=== PATIENT | female | born 1995 | race Caucasian/White ===

== ENCOUNTER 2017-09-06 09:49 | Emergency (ER) | payer OTHER ==
[2017-09-06 10:21] VITALS: BP 119/74
[2017-09-06] MEDS ORDERED: Albuterol 2.5 MG/3 ML NEB.SOL* (0.083%) INH ONE (10:43)
--- NOTE | 2017-09-06 10:44 | UC ---
UC General HPI - HPI Summary HPI Summary: pt is c/o a cough for 2 weeks. she was seen in ER and tx for bronchitis with augmentin. the cough is now congested. no fever or wheezing. hx childhood asthma. also, c/o nasal congestion for 5 days. - History of Current Complaint Chief Complaint: UCRespiratory Stated Complaint: COUGH/CONGESTION Time Seen by Provider: 09/06/17 10:37 Hx Obtained From: Patient Hx Last Menstrual Period: 2 days Onset/Duration: Gradual Onset Pain Intensity: 0 Alleviating: nothing Associated Signs & Symptoms: Positive: Cough, SOB. Negative: Chest Pain, Fever , Wheezing - Allergy/Home Medications Allergies/Adverse Reactions: Allergies Allergy/AdvReac Type Severity Reaction Status Date / Time coconut Allergy Swelling Verified 09/06/17 10:22 Of Face,Lips,& Throat environmental Allergy Sneezing Uncoded 09/06/17 10:22 Home Medications: Home Medications FLUoxetine CAP* [PROzac CAP*] 10 mg PO BEDTIME 09/06/17 [History Confirmed 09/06] FLUoxetine CAP* [PROzac CAP*] 20 mg PO DAILY 09/06/17 [History Confirmed ] Loratadine 10 mg PO QPM 09/06/17 [History Confirmed 09/06/17] PMH/Surg Hx/FS Hx/Imm Hx - Additional Past Medical History Additional PMH: allergies Respiratory History: Asthma Psychological History: Depression - Surgical History Surgical History: Yes Surgery Procedure, Year, and Place: 4 teeth extractions; ear tubes - Social History Alcohol Use: None Substance Use Type: None Smoking Status (MU): Never Smoked Tobacco - Immunization History Vaccination Up to Date: Yes Review of Systems Constitutional: Negative Skin: Negative Eyes: Negative ENT: Sinus Congestion Respiratory: Shortness Of Breath, Cough Cardiovascular: Negative Gastrointestinal: Negative Genitourinary: Negative Motor: Negative Neurovascular: Negative Musculoskeletal: Negative Neurological: Negative Psychological: Negative Is Patient Immunocompromised?: No All Other Systems Reviewed And Are Negative: Yes Physical Exam Triage Information Reviewed: Yes Appearance: Well-Appearing Vital Signs: Initial Vital Signs Temp 98 F 09/06/17 10:05 Pulse 100 09/06/17 10:05 Resp 18 09/06/17 10:05 BP 119/74 09/06/17 10:05 Pulse Ox 99 09/06/17 10:05 Eyes: Positive: Conjunctiva Clear ENT: Positive: Pharynx normal, TMs normal. Negative: Nasal drainage, Sinus tenderness Neck: Positive: Supple, Nontender, No Lymphadenopathy Respiratory: Positive: Lungs clear, No respiratory distress, Decreased breath sounds Cardiovascular: Positive: RRR, No Murmur Abdomen Description: Positive: Nontender, No Organomegaly, Soft Bowel Sounds: Positive: Present Musculoskeletal: Positive: ROM Intact Neurological: Positive: Alert Psychological: Positive: Age Appropriate Behavior Skin Exam: Normal Re-Evaluation - Re-Evaluation Second Eval Change: Improved - less cough and much improved aeration Course/Dx - Differential Dx - Multi-Symptom Provider Diagnoses: URI, asthma flare Discharge - Sign-Out/Discharge Documenting (check all that apply): Discharge - Discharge Plan Condition: Improved Disposition: HOME Prescriptions: Albuterol 2.5MG/3ML (0.083%)* [Ventolin 2.5 MG/3 ML NEB.TITO*] 2.5 mg INH Q6H PRN #1 box PRN Reason: Sob/Wheezing Albuterol HFA INHALER* [Ventolin HFA Inhaler*] 2 puff INH Q6H #1 mdi predniSONE TAB* [Deltasone TAB*] 40 mg PO DAILY 3 Days #6 tab Patient Education Materials: Asthma (ED), Upper Respiratory Infection (DC) Forms: *Work Release Referrals: Ladan Greene MD [Primary Care Provider] - 7 Days - Billing Disposition and Condition Condition: IMPROVED Disposition: HOME
== END 2017-09-06 11:22 | disposition home or self-care (01) ==
LOC: UCCORT 09:49
DX: J06.9 Acute upper respiratory infection, unspecified (principal); J45.909 Unspecified asthma, uncomplicated
CPT/HCPCS: 99212; G0463

== ENCOUNTER 2018-03-29 17:00 | Emergency (ER) | payer OTHER ==
--- OUTSIDE RECORDS SUMMARY | 2018-03-29 17:10 | XMS REPORT | Continuity of Care Document ---
:1995 External Reference #:[id number] Author Name Aleksandra Atkins NP Address [address] [place] [address] Care Team Providers Name Role Phone Family [facility] Primary Care Physician Unavailable Payers Type Date Identification Numbers Payment Provider Subscriber Effective: 2015 Policy Number: [id number] [facility] Joy Salazar PayID: [id number] [address] [place] [address] Policy Number: [id number] [place] Joy Salazar PayID: [id number] [address] [place] [address] Advance Directives Description No Information Available Problems Date Description Provider Status Onset: 06/07/2016 Benign hypertension Emmy Suazo NP Active Family History Date Family Member(s) Problem(s) Comments General Lung Disease PGF Father Unknown Mother Alive no contact Social History Type Date Description Comments Sex Female 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 [employer] Marital Status Legal Status: Never Tobacco Use Reviewed: 03/18/18 Never Smoked Cigars Tobacco Use Reviewed: 03/18/18 Never Smoked A Pipe Smoking Status Reviewed: 03/18/18 Never Smoked A Pipe Tobacco Use Reviewed: 03/18/18 Never Used Smokeless Tobacco ETOH Use Rarely consumes alcohol Recreational Drug Use Denies Drug Use Tobacco Use Reviewed: 03/18/18 Patient has never smoked Recreational Drug Use Teaching provided regarding Naloxone/Narcan Training Available At [facility] [employer]too[employer] 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 Last [place] 3 months ago Contraceptive Methods Past methods include depo-provera injection Contraceptive Methods Current methods used include Nexplanon Age 1st [place] 17 Years Old STD's No STD History UNKNOWN 03/18/2018 Never E-Cigarette user Allergies, Adverse Reactions, Alerts Date Description Reaction Status Severity Comments 11/14/2014 NKDA Active 11/14/2014 Environmental Active 10/16/2016 Coconut Active Medications Medication Date Status Form Strength Qnty SIG Indications Ordering Provider Depo-Provera 03/18 Active Suspension 150mg/ml 1ml intramuscular Z30.013 In every 12 weeks MD Sammy til next annual Naprosyn 10/16 Active Tablets 500mg 28tab 1 tab every 12 N92.6 In s hours take MD Sammy with food Naproxen Active Unknown / Loratadine Active Unknown Flagyl 05/28 Hx Tablets 500mg 4tabs four tabs by A59.01 In mouth x 1 dose MD Sammy - 03/18 Fluconazole 05/28 Hx Tablets 150mg 2tabs one tab today A59.01 In and september repeat MD Sammy - in 10 days if 03/18 symptomatic Ortho-Cyclen 05/28 Hx Tablets 0.25-35mg 56tab take one tab Z30.46 In -mcg s daily by mouth MD Sammy - at the same 03/18 Ortho-Cyclen 11/06 Hx Tablets 0.25-35mg 84tab take one tab Z30.46 In [facility] -mcg s daily by mouth MD Sammy - at the same 12/16 /2016 Hx Unknown Complete / - 11/06 Iron (Ferrous Hx Unknown Gluconate) / - 11/06 Medications Administered in Office Medication Date Status Form Strength Qnty SIG Indications Ordering Provider Nexplanon 03/11 Administered Implant 68mg Intraderm Z30.018 In catrachito Christianson MD J-Depo Provera 03/18 Administered Injection Aleksandra Injection GLADYS Atkins Contraceptive 05/28 Administered Injection Aleksandra Pills Cale Atkins NP Contraceptive 11/06 Administered Injection Aleksandra Pills Cale Atkins NP Nexplanon 03/11 Administered Injection Aleksandra Device GLADYS Atkins J-Depo Provera 02/08 Administered Injection Beverly Injection /2013 [place] Immunizations Description No Information Available Vital Signs Date Vital Result Comment 03/18/2018 11:25am BP Systolic 120 mmHg BP Diastolic 74 mmHg Height 60.5 inches 5'0.50" Weight 213.00 lb BMI (Body Mass Index) 40.9 kg/m2 05/28/2017 11:38am BP Systolic 118 mmHg BP Diastolic 80 mmHg Height 60.5 inches 5'0.50" Weight 206.00 lb BMI (Body Mass Index) 39.6 kg/m2 12/16/2016 1:58pm BP Systolic 120 mmHg BP Diastolic 78 mmHg Height 60.5 inches 5'0.50" Weight 193.00 lb BMI (Body Mass Index) 37.1 kg/m2 11/06/2016 9:52am BP Systolic 110 mmHg large manual cuff BP Diastolic 80 mmHg large manual cuff Weight 199.00 lb 10/16/2016 1:13pm BP Systolic 148 mmHg BP Diastolic 88 mmHg Weight 198.00 lb 06/07/2016 4:19pm BP Systolic 162 mmHg recheck 15 min rest BP Diastolic 90 mmHg recheck 15 min rest 06/07/2016 2:18pm BP Systolic 122 mmHg digital 32-42 cuff, left arm BP Diastolic 109 mmHg digital 32-42 cuff, left arm BP Systolic Recheck 124 mmHg manual,left arm BP Diastolic Recheck 90 mmHg manual,left arm Weight 205.00 lb 03/11/2016 1:40pm BP Systolic 118 mmHg BP Diastolic 78 mmHg Height 60.5 inches 5'0.50" Weight 182.00 lb BMI (Body Mass Index) 35.0 kg/m2 Results Test Date Facility Test Result H/L Range Note Thinprep Pap 05/28/2017 [facility] Results SEE NOTE 1 It Application Architect W/RFX HPV HR Chlam 05/28/2017 [facility] C.Trachomatis NOT DETECTED Not Detected 2 Trach/Neisseria Rna,Tma Gonorroeae Rna Tma N.Gonorrhoeae Rna,Tma NOT DETECTED Not Detected 3 Laboratory test 12/16/2016 [facility] HIV Rapid... non reactive finding Chlam 10/16/2016 [facility] C.Trachomatis NOT DETECTED Not Detected 4 Trach/Neisseria Rna,Tma Gonorroeae Rna Tma N.Gonorrhoeae Rna,Tma NOT DETECTED Not Detected 5 Laboratory test finding 06/07/2016 [facility] Test Urine..... neg Urinalysis DIP Only.... 06/07/2016 [facility] Urine Protein Random neg Urine Glucose QN Random neg Laboratory test finding 03/11/2016 [facility] Test Urine..... neg Urinalysis DIP Only.... 03/11/2016 [facility] Urine Protein Random N Urine Glucose QN Random N 1 GYNECOLOGICAL CYTOLOGY REPORT Thinprep TIS PAP w/rfx to HPV E6/E7 REPORT STATUS: FINAL CLINICAL INFORMATION: Information not provided SLIDES / SOURCE: 2 / Information not provided STATEMENT OF ADEQUACY: SATISFACTORY FOR EVALUATION Partially obscuring blood INTERPRETATION/RESULT: Negative for intraepithelial lesion or malignancy. Reactive cellular changes associated with repair. Shift in vaginal blanca suggestive of bacterial vaginosis. COMMENT: This case could not be evaluated with computer assisted technology. The slide was manually screened according to routine procedures. COMPOUND FINISHER: OLEG GOODWIN(ASCP) For informational purposes: All cytology specimens are processed at [facility]. [address] [place] [address] PATHOLOGIST: Tunde Morgan MD, Board Certified in Anatomic Pathology and Cytopathology (electronic signature) For questions regarding this report call Anatomic Pathology at [phone] Tunde Morgan MD, Weatherization Director [employer] [place], [place] 2 This test was performed using the APTIMA COMBO2(R) Assay (GEN-PROBE(R). The analytical performance characteristics of this assay, when used to test SurePath(R) specimens have been determined by [facility]. 3 This test was performed using the APTIMA COMBO2(R) Assay (GEN-PROBE(R). The analytical performance characteristics of this assay, when used to test SurePath(R) specimens have been determined by [facility]. 4 This test was performed using the APTIMA COMBO2(R) Assay (GEN-PROBE(R). The analytical performance characteristics of this assay, when used to test SurePath(R) specimens have been determined by [facility]. 5 This test was performed using the APTIMA COMBO2(R) Assay (GEN-PROBE(R). The analytical performance characteristics of this assay, when used to test SurePath(R) specimens have been determined by [facility]. Procedures Date Code Description Status 03/18/2018 68500 Therapeutic, Prophylactic Or Diagnostic Injection Subq/Im Completed 03/18/2018 31069 Removal, Non-Biodegradable Drug Delivery Implant Completed 03/11/2016 37630 Insertion, Non-Biodegradable Drug Delivery Implant Completed 02/08/2014 71413 Therapeutic, Prophylactic Or Diagnostic Injection Subq/Im Completed Encounters Description No Information Available Plan of Treatment Future Appointment(s):06/08/2018 1:00 pm - [facility] at [facility]03/18/2018 - Aleksandra Atkins NPZ30.46 Encounter for surveillance of implantable subdermal pemfigzbwjtztZ86.013 Encounter for initial prescription of injectable contraceptiveNew Medication:Depo-Provera 150 mg/ml - intramuscular every 12 weeks til next annualComments:Depo is not effective for 7 day, use back up method, may have irregular bleeding call for any questions or concerns
[2018-03-29 17:30] VITALS: BP 119/83
--- NOTE | 2018-03-29 19:50 | UC ---
Knee Pain HPI - HPI Summary HPI Summary: 22 year old female presents with right knee pain. States she jumped to try to try to reach an item on the top shelf at [employer] yesterday and when she landed she felt a "pop" and sudden pain in the right knee. She was able to walk and bear weight immediately after the injury and in the clinic. Describes pain constant and sharp. Worsens with ambulation. She took ibuprofen with improvement in the pain. - History of Current Complaint Chief Complaint: UCLowerExtremity Stated Complaint: RIGHT KNEE PAIN Time Seen by Provider: 03/29/18 19:09 Hx Obtained From: Patient Hx Last Menstrual Period: 03/18/18 Onset/Duration: Sudden Onset, Lasting Days - 1 Severity Currently: Moderate Pain Intensity: 8 Character: Sharp Aggravating Factor(s): Weight Bearing Alleviating Factor(s): Rest, OTC Meds Associated Signs And Symptoms: Negative: Swelling, Redness, Bruising, Fever, Weakness, Numbness, Tingling Able to Bear Weight: Yes - Allergies/Home Medications Allergies/Adverse Reactions: Allergies Allergy/AdvReac Type Severity Reaction Status Date / Time coconut Allergy Swelling Verified 03/29/18 17:24 Of Face,Lips,& Throat environmental Allergy Sneezing Uncoded 03/29/18 17:24 Home Medications: Home Medications buPROPion TAB* [Wellbutrin TAB*] 75 mg PO DAILY 03/29/18 [History Confirmed 04/05] medroxyPROGESTERone ACETATE* [DEPO-Provera*] 150 mg IM Q3M 03/29/18 [History Confirmed 03/29/18] PMH/Surg Hx/FS Hx/Imm Hx Previously Healthy: Yes Psychological History: Anxiety, Depression - Surgical History Surgical History: Yes Surgery Procedure, Year, and Place: 4 teeth extractions; ear tubes - Family History Family History: noncontributory - Social History Occupation: Employed Full-time Lives: With Family Alcohol Use: Rare Substance Use Type: None Smoking Status (MU): Never Smoked Tobacco - Immunization History Vaccination Up to Date: Yes Review of Systems All Other Systems Reviewed And Are Negative: No Constitutional: Positive: Negative Skin: Positive: Negative Motor: Positive: Negative Neurovascular: Positive: Negative Musculoskeletal: Positive: Other: - See HPI Neurological: Positive: Negative Is Patient Immunocompromised?: No Physical Exam Triage Information Reviewed: Yes Appearance: Well-Appearing, No Pain Distress, Well-Nourished Vital Signs: Initial Vital Signs Temp 98 F 03/29/18 17:22 Pulse 84 03/29/18 17:22 Resp 14 03/29/18 17:22 BP 119/83 03/29/18 17:22 Pulse Ox 100 03/29/18 17:22 Vital Signs Reviewed: Yes Respiratory: Positive: No respiratory distress Cardiovascular: Positive: Pulses Normal, Brisk Capillary Refill Musculoskeletal: Positive: Strength Intact, ROM Intact, No Edema, Other: - Mild tenderness with palpation to inferior joint line. No crepitus or gross deformity. Negative anterior drawer, posterior drawer, valgus or varus stress testing. Diagnostics - Radiology No standard instances Radiology Interpretation Completed By: ED Physician Summary of Radiographic Findings: No acute process Knee Pain Course/Dx - Course Course Of Treatment: 22 year old female presens with sudden onset of right knee pain after jumping. Exam was unremarkable except for some mild tenderness with palpatation to the inferior joint line. X-ray normal. Symptoms suggest a mild- moderate knee sprain. Recommend symtomatic treatment with NSAIDs and RICE. She is to follow up with her PCP if symptoms persist. Warning symptoms reviewed. Verbalizes understanding and agrees with POC. - Differential Dx/Diagnosis Differential Diagnosis/HQI/PQRI: Dislocation, Fracture (Closed), Sprain Provider Diagnoses: right knee sprain Discharge - Sign-Out/Discharge Documenting (check all that apply): Patient Departure All imaging exams completed and their final reports reviewed: No - Discharge Plan Condition: Stable Disposition: HOME Prescriptions: Naproxen [Naproxen 500 mg tab] 500 mg PO Q12HR #30 tablet Patient Education Materials: Knee Sprain (ED) Referrals: No Primary Care Phys,NOPCP [Primary Care Provider] - Additional Instructions: The [facility] of [facility] showed no evidence of a fracture or dislocation. You symptoms are likely a sprain of the knee. The x- ray will be reviewed by the radiologist tomorrow and we will contact you if they see anything that would change your treatment plan. Take naproxen 1 tab every 12 hours with food for the next 7 days. After 7 days you may take every 12 hours as needed for pain. Rest the knee as much as possible. You may continue to walk and bear weight as tolerated. Apply ice to the knee for 15-20 minutes 4 times a day. Keep the leg elevated while sitting to help reduce any swelling. Follow up with your primary care provider in 7 days if symptoms persist. Seek immediate medical attention in the emergency room if you have pain not managed with the pain medication, increased swelling, numbness or tingling in the leg, foot, or toes, are unable to walk or bear weight, or any worsening of symptoms. - Billing Disposition and Condition Condition: STABLE Disposition: Home
[2018-03-29] MEDS ORDERED: Naproxen TAB* 250 MG PO ONE (19:51)
--- NOTE | 2018-03-30 14:57 | UC ---
- Progress Note Progress Note: XR negative. No change in plan of care Discharge - Sign-Out/Discharge Documenting (check all that apply): Post-Discharge Follow Up All imaging exams completed and their final reports reviewed: Yes - Discharge Plan Condition: Stable Disposition: HOME Prescriptions: Naproxen [Naproxen 500 mg tab] 500 mg PO Q12HR #30 tablet Patient Education Materials: Knee Sprain (ED) Referrals: No Primary Care Phys,NOPCP [Primary Care Provider] - Additional Instructions: The x-ray of your knee performed in the clinic [facility] showed no evidence of a fracture or dislocation. You symptoms are likely a sprain of the knee. The x- ray will be reviewed by the radiologist tomorrow and we will contact you if they see anything that would change your treatment plan. Take naproxen 1 tab every 12 hours with food for the next 7 days. After 7 days you may take every 12 hours as needed for pain. Rest the knee as much as possible. You may continue to walk and bear weight as tolerated. Apply ice to the knee for 15-20 minutes 4 times a day. Keep the leg elevated while sitting to help reduce any swelling. Follow up with your primary care provider in 7 days if symptoms persist. Seek immediate medical attention in the emergency room if you have pain not managed with the pain medication, increased swelling, numbness or tingling in the leg, foot, or toes, are unable to walk or bear weight, or any worsening of symptoms. - Billing Disposition and Condition Condition: STABLE Disposition: Home
== END 2018-03-29 19:59 | disposition home or self-care (01) ==
LOC: UCCORT 17:00
DX: S83.91XA Sprain of unspecified site of right knee, initial encounter (principal); X50.0XXA Overexertion from strenuous movement or load, initial encounter; Y93.39 Activity, other involving climbing, rappelling and jumping off; Y92.9 Unspecified place or not applicable
CPT/HCPCS: 99212; A9270-GY; G0463

== ENCOUNTER 2018-05-08 09:17 | Emergency (ER) | payer OTHER ==
[2018-05-08 09:47] VITALS: BP 125/81
--- NOTE | 2018-05-08 10:51 | UC ---
Abdominal Pain Female HPI - HPI Summary HPI Summary: left flank pain x 1 day sudden onset , the pain was sever, sharp, lasted for few min and is gone no pain now, no radiation of the pain , no nausea , no vomiting, no diarrhea or constipation no urinary sx - History of Current Complaint Chief Complaint: UCAbdominalPain Stated Complaint: LEFT SIDE PAIN HEADACHE RUNNY NOSE Time Seen by Provider: 05/08/18 09:34 Hx Obtained From: Patient Hx Last Menstrual Period: Depo-Provera; "Last month sometime" ?: No Onset/Duration: Sudden Onset, Lasting Minutes - 1, Resolved Timing: Constant Severity Initially: Severe Severity Currently: None Pain Intensity: 9 Pain Scale Used: 0-10 Numeric Location: Discrete At: LUQ Radiates: No Character: Sharp, Tearing Aggravating Factor(s): Nothing Alleviating Factor(s): Spontaneous Resolution Associated Signs and Symptoms: Positive: Negative Allergies/Adverse Reactions: Allergies Allergy/AdvReac Type Severity Reaction Status Date / Time coconut Allergy Swelling Verified 03/29/18 17:24 Of Face,Lips,& Throat PMH/Surg Hx/FS Hx/Imm Hx Previously Healthy: Yes Psychological History: Depression - Surgical History Surgical History: Yes Surgery Procedure, Year, and Place: 4 teeth extractions; ear tubes - Family History Known Family History: Negative: Diabetes Family History: noncontributory - Social History Alcohol Use: Rare Substance Use Type: None Smoking Status (MU): Never Smoked Tobacco Household Exposure Type: Cigarettes - Immunization History Vaccination Up to Date: Yes Review of Systems All Other Systems Reviewed And Are Negative: Yes Constitutional: Positive: Negative Skin: Positive: Negative Eyes: Positive: Negative ENT: Positive: Negative Respiratory: Positive: Negative Gastrointestinal: Positive: Abdominal Pain Is Patient Immunocompromised?: No Physical Exam Triage Information Reviewed: Yes Appearance: Well-Appearing, No Pain Distress, Well-Nourished Vital Signs: Initial Vital Signs Temp 98.3 F 05/08/18 09:38 Pulse 72 05/08/18 09:38 Resp 16 05/08/18 09:38 BP 125/81 05/08/18 09:38 Pulse Ox 100 05/08/18 09:38 Vital Signs Reviewed: Yes Eye Exam: Normal Eyes: Positive: Conjunctiva Clear ENT: Positive: Normal ENT inspection, Hearing grossly normal, Pharynx normal Neck: Positive: Supple, Nontender, No Lymphadenopathy Respiratory: Positive: Chest non-tender, Lungs clear, Normal breath sounds Cardiovascular: Positive: RRR, No Murmur, Pulses Normal Abdominal Exam: Normal Abdomen Description: Positive: Nontender, No Organomegaly, Soft. Negative: CVA Tenderness (R), CVA Tenderness (L), Distended, Guarding Bowel Sounds: Positive: Present Abd Pain Female Course/Dx - Differential Dx/Diagnosis Provider Diagnosis: Flank pain Discharge - Sign-Out/Discharge Documenting (check all that apply): Patient Departure All imaging exams completed and their final reports reviewed: No Studies - Discharge Plan Condition: Stable Disposition: HOME Patient Education Materials: Flank Pain (ED) Referrals: Antonia Mckee MD [Primary Care Provider] - 7 Days - Billing Disposition and Condition Condition: STABLE Disposition: Home
--- NOTE | 2018-05-11 07:14 | UC ---
- Progress Note Progress Note: urine culture - no growth final no change ljj 05/11/18 Course/Dx - Diagnoses Provider Diagnoses: Flank pain Discharge - Sign-Out/Discharge Documenting (check all that apply): Post-Discharge Follow Up All imaging exams completed and their final reports reviewed: No Studies - Discharge Plan Condition: Stable Disposition: HOME Patient Education Materials: Flank Pain (ED) Referrals: Antonia Mckee MD [Primary Care Provider] - 7 Days - Billing Disposition and Condition Condition: STABLE Disposition: Home
== END 2018-05-08 10:26 | disposition home or self-care (01) ==
LOC: UCCORT 09:17
DX: R10.9 Unspecified abdominal pain (principal)
CPT/HCPCS: 81003; 87086; 99212; G0463

== ENCOUNTER 2019-03-10 15:01 | Emergency (ER) | payer OTHER ==
[2019-03-10 16:07] VITALS: BP 113/68
== END 2019-03-10 16:25 | disposition left against medical advice (07) ==
LOC: UCCORT 15:01
DX: Z53.21 Procedure and treatment not carried out due to patient leaving prior to being seen by health care provider (principal)

== ENCOUNTER 2019-07-27 14:12 | Emergency (ER) | payer OTHER ==
--- OUTSIDE RECORDS SUMMARY | 2019-07-27 14:29 | XMS REPORT | Continuity of Care Document ---
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 [phone] Problems Active Problems Provider Date Benign hypertension Emmy Suazo NP Onset: 06/07/2016 Social History Type Date Description Comments Sex Female Tobacco Use Reviewed: 03/18/18 Never Smoked Cigars Tobacco Use Reviewed: 03/18/18 Never Smoked A Pipe Smoking Status Reviewed: 03/18/18 Never Smoked A Pipe Tobacco Use Reviewed: 03/18/18 Never Used Smokeless Tobacco ETOH Use Rarely consumes alcohol Recreational Drug Use Denies Drug Use Tobacco Use Reviewed: 03/18/18 Patient has never smoked Recreational Drug Use Teaching provided regarding Naloxone/Narcan Training Available At [facility] Tattoo/Piercing 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 Allergies, Adverse Reactions, Alerts Active Allergies Reaction Severity Comments Date NKDA 11/14/2014 Environmental 11/14/2014 Coconut 10/16/2016 Latex 07/23/2019 Medications Active Medications SIG Qnty Indications Ordering Date Provider Depo-Provera 1 intramuscular 1ml Z30.013 Emmy Suazo, 07/23/2019 150mg/ml injection every 12 GRADE TEACHER Suspension weeks until annual exam Depo-Provera 1 intramuscular 1ml Emmy Suazo, 03/30/2019 150mg/ml injection every 12 GRADE TEACHER Suspension weeks until annual exam Depo-Provera 1 intramuscular 1ml Z30.013 Emmy Suazo, 10/20/2018 150mg/ml injection every 12 GRADE TEACHER Suspension weeks until annual exam Fluoxetine HCL Unknown Loratadine-D 12HR Unknown Medications Administered in Office Medication SIG Qnty Indications Ordering Provider Date J-Depo Provera Injection Emmy Suazo NP 07/23/2019 Injection J-Depo Provera Injection Emmy Suazo NP 01/05/2019 Injection J-Depo Provera Injection Emmy Suazo NP 10/20/2018 Injection J-Depo Provera Injection Aleksandra Atkins NP 03/18/2018 Injection Contraceptive Pills Control Aleksandra Atkins NP 05/28/2017 Injection Contraceptive Pills Control Aleksandra Atkins NP 11/06/2016 Injection Nexplanon Device Aleksandra Atkins NP 03/11/2016 Injection J-Depo Provera Injection Beverly Salton 02/08/2014 Injection Immunizations Description No Information Available Vital Signs Date Vital Result Comment 07/23/2019 12:26pm Body Temperature 98.1 F BP Systolic 124 mmHg BP Diastolic 82 mmHg Heart Rate 70 /min Height 62 inches 5'2" Weight 219.00 lb BMI (Body Mass Index) 40.1 kg/m2 01/05/2019 9:27am BP Systolic 128 mmHg BP Diastolic 78 mmHg Weight 204.00 lb Results Description No Information Available Procedures Date Code Description Status 07/23/2019 55984 Therapeutic, Prophylactic Or Diagnostic Injection Subq/Im Completed Medical Devices Description No Information Available Encounters Description No Information Available Assessments Date Code Description Provider 07/23/2019 Z30.013 Encounter for initial prescription of Emmy Suazo NP injectable contraceptive 07/23/2019 Z30.42 Encounter for surveillance of injectable Emmy Suazo NP contraceptive 07/23/2019 Z30.40 Encounter for surveillance of contraceptives, Emmy Suazo NP unspecified Plan of Treatment Future Appointment(s):10/08/2019 12:00 pm - GRADE TEACHER at [facility]07/23/2019 - Emmy Suazo NPZ30.013 Encounter for initial prescription of injectable contraceptiveNew Medication:Depo-Provera 150 mg/ml - 1 intramuscular injection every 12 weeks until annual examComments:No UPIC since last menses. Patient to start on Depo today. Reviewed use of, side effects and precautions with patient who states understanding. Patient is aware of ECP. Reviewed importance of calcium intake and weight bearing exercise. Patient states understanding. Instructed patient to abstain or use BUBC for the next 7 days and patient states understanding.Follow up:When Depo is due- sooner prn any concerns.Z30.42 Encounter for surveillance of injectable [id number] Encounter for surveillance of contraceptives, unspecified Functional Status Description No Information Available Mental Status Description No Information Available Referrals Description No Information Available
--- OUTSIDE RECORDS SUMMARY | 2019-07-27 14:29 | XMS REPORT | Continuity of Care Document ---
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 Problems Active Problems Provider Date Benign hypertension [...] Teaching provided regarding Naloxone/Narcan Training Available At [facility] Tattoo/Piercing 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 Allergies, Adverse Reactions, Alerts Active Allergies Reaction Severity Comments Date NKDA 11/14/2014 Environmental 11/14/2014 Coconut 10/16/2016 Latex 07/23/2019 Medications Active Medications SIG Qnty Indications Ordering Date Provider Depo-Provera 1 intramuscular 1ml Z30.013 Emmy Suazo, 07/23/2019 150mg/ml injection every 12 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 SPECIALIST Suspension weeks until annual exam Depo-Provera 1 intramuscular 1ml Emmy Suazo, 03/30/2019 150mg/ml injection every 12 PRODUCT SPECIALIST Suspension weeks until annual exam Depo-Provera 1 intramuscular 1ml Z30.013 Emmy Suazo, 10/20/2018 150mg/ml injection every 12 PRODUCT SPECIALIST Suspension weeks until annual exam Fluoxetine HCL Unknown Loratadine-D 12HR Unknown Medications Administered in Office Medication SIG Qnty Indications Ordering Provider Date J-Depo Provera Injection Emmy Suazo, GLADYS 01/05/2019 Injection J-Depo Provera Injection Emmy Suazo, GLADYS 10/20/2018 Injection J-Depo Provera Injection Aleksandra Milly, GLADSY 03/18/2018 Injection Contraceptive Pills Control Aleksandra Atkins, PRODUCT SPECIALIST 05/28/2017 Injection Contraceptive Pills Control Aleksandra Milly, PRODUCT SPECIALIST 11/06/2016 Injection Nexplanon Device Aleksandra Atkins, PRODUCT SPECIALIST 03/11/2016 Injection J-Depo Provera Injection Beverly Salton [...] lb Results Description No Information Available Procedures Description No Information Available Medical Devices Description No Information Available Encounters Description No Information Available Assessments Date Code Description Provider 07/23/2019 Z30.013 Encounter for initial prescription of Emmy Suazo NP injectable contraceptive Plan of Treatment Future Appointment(s):10/08/2019 12:00 pm - PRODUCT SPECIALIST at [facility]07/23/2019 - Emmy Suazo NPZ30.013 Encounter for initial prescription of injectable contraceptiveNew Medication:Depo-Provera 150 mg/ml - 1 intramuscular injection every 12 weeks until annual examComments: control end of visit:Follow up: When Depo is due- sooner prn any concerns. Functional Status Description No Information Available Mental Status Description No Information Available Referrals Description No Information Available
[2019-07-27 14:41] VITALS: BP 95/75
--- NOTE | 2019-07-27 16:08 | UC ---
Respiratory Complaint HPI - HPI Summary HPI Summary: 24 yo female with onset this am of runny nose/sneezing and cough chest fell tight but not wheezing hx of childhood asthma - History of Current Complaint Chief Complaint: UCGeneralIllness Stated Complaint: CHEST CONGESTION, COUGH Time Seen by Provider: 07/27/19 15:50 Hx Obtained From: Patient Hx Last Menstrual Period: does not get period while on depo inj Onset/Duration: Gradual Onset, Lasting Hours Timing: Constant Severity Initially: Mild Severity Currently: Mild Pain Intensity: 0 Pain Scale Used: 0-10 Numeric Character: Cough: Nonproductive Aggravating Factors: Nothing Alleviating Factors: Nothing Associated Signs And Symptoms: Positive: Nasal Congestion. Negative: Dyspnea, Fever, Chills, Pleuritic Chest Pain, Wheezing, Hemoptysis, Dizziness, Calf Pain , Calf Swelling, Edema, URI, Hoarseness, Sinus Discomfort - Allergies/Home Medications Allergies/Adverse Reactions: Allergies Allergy/AdvReac Type Severity Reaction Status Date / Time coconut Allergy Swelling Verified 07/27/19 14:36 Of Face,Lips,& Throat Home Medications: Home Medications FLUoxetine CAP* [Prozac CAP*] 20 mg PO DAILY 09/06/17 [History Confirmed ] medroxyPROGESTERone ACETATE* [DEPO-Provera*] 150 mg IM Q3M 03/29/18 [History Confirmed 07/27/19] Benzonatate CAP* [Tessalon CAP*] 100 - 200 mg PO TID PRN #28 cap 07/27/19 [Rx] Ibuprofen TAB* [Advil TAB*] 600 mg PO ONCE 07/27/19 [History Confirmed 07/27/19] PMH/Surg Hx/FS Hx/Imm Hx Previously Healthy: Yes - Surgical History Surgical History: Yes Surgery Procedure, Year, and Place: 4 teeth extractions; ear tubes - Family History Known Family History: Negative: Diabetes Family History: noncontributory - Social History Alcohol Use: Rare Substance Use Type: None Smoking Status (MU): Never Smoked Tobacco Household Exposure Type: Cigarettes - Immunization History Vaccination Up to Date: Yes Review of Systems All Other Systems Reviewed And Are Negative: Yes Constitutional: Positive: Negative Skin: Positive: Negative Eyes: Positive: Negative ENT: Positive: Nasal Discharge, Other - sneezing Respiratory: Positive: Cough Cardiovascular: Positive: Negative Gastrointestinal: Positive: Negative Genitourinary: Positive: Negative Motor: Positive: Negative Neurovascular: Positive: Negative Musculoskeletal: Positive: Negative Neurological/Mental Status: Positive: Negative Psychological: Positive: Negative Physical Exam Triage Information Reviewed: Yes Appearance: Well-Appearing, No Pain Distress, Well-Nourished Vital Signs: Initial Vital Signs Temp 98.3 F 07/27/19 14:36 Pulse 83 07/27/19 14:36 Resp 15 07/27/19 14:36 BP 95/75 07/27/19 14:36 Pulse Ox 98 07/27/19 14:36 Vital Signs Reviewed: Yes Eyes: Positive: Conjunctiva Clear ENT: Positive: Hearing grossly normal, Pharynx normal, Nasal congestion, Nasal drainage, TMs normal, Uvula midline. Negative: Tonsillar swelling, Tonsillar exudate, Trismus, Muffled voice, Hoarse voice, Dental tenderness, Sinus tenderness Neck: Positive: Supple, Nontender, No Lymphadenopathy Respiratory: Positive: Lungs clear, Normal breath sounds, No respiratory distress, No accessory muscle use, Respiratory distress Cardiovascular: Positive: RRR, No Murmur Musculoskeletal: Positive: ROM Intact, No Edema Neurological: Positive: Alert Psychological Exam: Normal Skin Exam: Normal Diagnostics - Laboratory Lab Results: influenza (-) Respiratory Course/Dx - Differential Dx/Diagnosis Provider Diagnosis: Viral URI with cough Discharge ED - Sign-Out/Discharge Documenting (check all that apply): Patient Departure All imaging exams completed and their final reports reviewed: No Studies - Discharge Plan Condition: Stable Disposition: HOME Prescriptions: Benzonatate CAP* [Tessalon CAP*] 100 - 200 mg PO TID PRN #28 cap PRN Reason: Cough Patient Education Materials: Upper Respiratory Infection (ED) Referrals: Antonia Mckee MD [Primary Care Provider] - 2 Days Additional Instructions: influenza (-) - Billing Disposition and Condition Condition: STABLE Disposition: Home
[2019-07-27 16:22] LABS: Influenza A Molecular Negative (Negative); Influenza B Molecular Negative (Negative)
== END 2019-07-27 16:37 | disposition home or self-care (01) ==
LOC: UCCORT 14:12
DX: J06.9 Acute upper respiratory infection, unspecified (principal); R05 Cough; Z91.018 Allergy to other foods
CPT/HCPCS: 99212; G0463

== ENCOUNTER 2023-01-28 16:52 | Inpatient (IN) ==
[2023-01-28] MEDS ORDERED: Buffered Lidocaine 1% SYRIN 1 ml INTRADERM ONE (18:34)
[2023-01-28] MEDS ORDERED: Lidocaine 1% VIAL 10 MG/ML 30 ML VIAL INJ PRN (18:34)
[2023-01-28] MEDS ORDERED: Lactated Ringers 1000 ml BAG 1,000 ML IV ONE (18:34)
[2023-01-28] MEDS ORDERED: Promethazine INJ(RESTRICTED) 25 MG/ML 1 ml VIAL IV PRN (18:34)
[2023-01-28] MEDS ORDERED: Oxytocin in LR 20,000 MILLI.UNIT/1,000 ML BAG IV SCH (18:35)
[2023-01-28] MEDS: Lactated Ringers 1000 ml BAG 1,000 ML IV SCH (19:46)
[2023-01-28 20:00] LABS: ABS Basophils 0.1 10^3/uL (0.0-0.1); ABS Eosinophils 0.1 10^3/uL (0.0-0.5); ABS Lymphocytes 2.6 10^3/uL (1.0-4.8); ABS Monocytes 0.9 10^3/uL (0.0-0.9); ABS Neutrophils 6.3 10^3/uL (1.5-7.6); ABS Nucleated RBC 0.04 10^3/ul; Eosinophil % 1.5 %; Hematocrit 31.1 % (35-45); Mean Corpuscular Hgb Conc 35.5 g/dL (31-36); Mean Corpuscular Volume 81.8 fL (80-97); Nucleated Red Blood Cells % 0.4 /100 WBC (0.0-0.4); Platelet Count 228 10^3/uL (150-450); Red Cell Distribution Width 14.6 % (12-17)
[2023-01-28 20:30] LABS: Albumin 3.4 g/dL (3.2-5.2); Calcium 9.2 mg/dL (8.6-10.3); Total Bilirubin 0.3 mg/dL (0.2-1.0)
[2023-01-28 20:36] LABS: Albumin/Globulin Ratio 1.3 (1-3); Creatinine, Serum 0.41 mg/dL (0.51-0.95); Globulin 2.7 g/dL (2-4); Total Protein 6.1 g/dL (6.4-8.9); Uric Acid 6.8 mg/dL (2.3-6.6); eGFR CKD-EPI 139.1 (>60)
[2023-01-28 21:04] LABS: Urine Benzodiazepine Screen None Detected (None Detect); Urine Cannabinoids Screen None Detected (None Detect); Urine Opiates Screen None Detected (None Detect)
[2023-01-28] MEDS ORDERED: Ondansetron 4 mg VIAL 2 MG/ML 2 ml VIAL IV ONE (23:03)
[2023-01-29] MEDS: Lactated Ringers 1000 ml BAG 1,000 ML IV SCH (08:40)
[2023-01-29] MEDS ORDERED: Labetalol IV 5 MG/ML 20 ml VIAL IV PUSH ONE (10:21)
[2023-01-29] MEDS ORDERED: Dibucaine 1% OINT 28.35 GM TUBE PR PRN (12:58)
[2023-01-29] MEDS ORDERED: Witch Hazel PAD JAR TOPICAL PRN (12:58)
[2023-01-29] MEDS ORDERED: Glycerin ADULT 2.4 gm SUPP PR PRN (12:58)
[2023-01-29] MEDS ORDERED: Oxytocin in LR 20,000 MILLI.UNIT/1,000 ML BAG IV SCH (13:00)
[2023-01-29] MEDS ORDERED: Lactated Ringers 1000 ml BAG 1,000 ML IV SCH (13:00)
[2023-01-29] MEDS ORDERED: Measles, Mumps,Rubella VACC 0.5 ML/VIAL SUBCUT ONE (14:00)
[2023-01-29] MEDS ORDERED: Varicella Virus Vaccine Live 0.5 ML VIAL SUBCUT ONE (14:00)
[2023-01-30 06:52] LABS: ABS Eosinophils 0.1 10^3/uL (0.0-0.5); ABS Lymphocytes 2.1 10^3/uL (1.0-4.8); ABS Monocytes 0.7 10^3/uL (0.0-0.9); ABS Neutrophils 9.4 10^3/uL (1.5-7.6); Eosinophil % 1.1 %; Hematocrit 27.8 % (35-45); Hemoglobin 9.7 g/dL (11.5-14.3); Lymphocyte % 16.8 %; Mean Corpuscular Hemoglobin 28.9 pg (27-33); Mean Corpuscular Volume 82.4 fL (80-97); Mean Platelet Volume 9.3 fL (7.5-11.2); Platelet Count 195 10^3/uL (150-450); Red Blood Count 3.37 10^6/uL (3.63-4.92); Red Cell Distribution Width 14.5 % (12-17); White Blood Count 12.4 10^3/uL (3.8-11.8)
[2023-01-30 12:25] VITALS: BP 104/73
== END 2023-01-30 14:53 | disposition home or self-care (01) | DRG 560 ==
LOC: MCHOBOUT 16:52 → MCHOB 17:55
PROVIDERS: ADMIT Obstetrics & Gynecology; ATTEND Obstetrics & Gynecology